=== PATIENT | male | born 1955 | race Caucasian/White ===

== ENCOUNTER 2017-04-19 12:26 | Outpatient (CLI) | payer BC ==
--- NOTE | 2017-04-19 15:08 | RAD ---
RIGHT KNEE 4 VIEWS: Date: 04/19/17 HISTORY: Right knee pain, injury. FINDINGS/IMPRESSION: Degenerative changes are present. No acute fracture or dislocation is identified. There is some fulln ess in the suprapatellar pouch, suspicious for joint effusion. POS: [facility]
== END 2017-04-19 12:27 | disposition home or self-care (01) ==
LOC: MADRAD 12:26
PROVIDERS: ATTEND Family Medicine
DX: M25.561 Pain in right knee (principal); M17.11 Unilateral primary osteoarthritis, right knee

== ENCOUNTER 2020-02-23 15:09 | Outpatient (CLI) | payer BC ==
--- NOTE | 2020-02-23 15:42 | RAD ---
RIGHT ANKLE 3 VIEWS: HISTORY: Injury, right ankle pain FINDINGS: Soft tissue swelling is present. Degenerative changes are present. The ankle mortise is maintained. N o acute fracture or dislocation is identified. Calcaneal spurs are noted.
== END 2020-02-23 15:10 | disposition home or self-care (01) ==
LOC: MADRAD 15:09
PROVIDERS: ATTEND Family Medicine
DX: S99.911A Unspecified injury of right ankle, initial encounter (principal)

== ENCOUNTER 2022-06-08 11:03 | Outpatient (CLI) | payer BC | END 2022-06-08 11:04 | disposition home or self-care (01) | LOC: MADRAD 11:03 | PROVIDERS: ATTEND Internal Medicine | DX: I10 Essential (primary) hypertension (principal) | CPT/HCPCS: 71046 ==

== ENCOUNTER 2023-03-28 09:24 | Outpatient (CLI) | payer BC, OTHER | END 2023-03-28 09:25 | disposition home or self-care (01) | LOC: MADRAD 09:24 | PROVIDERS: ATTEND Internal Medicine | DX: J34.89 Other specified disorders of nose and nasal sinuses (principal); R05.1 Acute cough | CPT/HCPCS: 70220; 71046 ==

== ENCOUNTER 2024-04-13 17:00 | Emergency (ER) | payer MEDICARE, BC ==
[~2024-04-13 17:00] MED LIST: Atropine Sulfate 1 mg/10 ml Syringe ONE; EPINEPHrine 1 MG/10 ML Abboject SYRINGE ONE; Rocuronium Bromide 10 MG/ML (10ML VIAL) ONE; Sodium Chloride 0.9% 1,000 ML BAG ONE; Sodium Chloride 0.9% 500 ML BAG (BAXTER) ONE
[2024-04-13] MEDS ORDERED: Etomidate 40 MG (20 mL) VIAL ONE (17:01)
[2024-04-13] MEDS ORDERED: Ketamine 50 MG/ML (10ML VIAL) ONE (17:03)
== END 2024-04-13 19:15 | disposition expired ==
LOC: MADERS 17:00
DX: I46.9 Cardiac arrest, cause unspecified (principal)
CPT/HCPCS: 36430; 71045; 92950; 94760; 96374; 96375; G0390; J0171; J0461; J7030; P9016